=== PATIENT | female | born 1995 | race Caucasian/White ===

== ENCOUNTER → 2018-07-23 | Outpatient (CLI) | payer OTHER | LOC: LAB SHORT 10:55 → LAB 10:55 | DX: K27.9 Peptic ulcer, site unspecified, unspecified as acute or chronic, without hemorrhage or perforation (principal) | CPT/HCPCS: 87338 ==

== ENCOUNTER 2018-08-31 09:29 | Day surgery (SDC) | payer OTHER ==
[~2018-08-31] VITALS: Ht 165.1 cm; Wt 75.3 kg
[~2018-08-31 09:29] MED LIST: AMIT10 PO; ENSKYCE1 EACH PO; ESCI20 PO; ONDA4ODT MM; Omeprazole20 M1 PO; SUCR1 PO; TRAZ100 PO
[2018-08-31] MEDS ORDERED: Zantac150 MG PO (10:20)
== END 2018-08-31 22:46 | disposition home or self-care (01) ==
LOC: ORSCMMR 09:29 → ORD 10:30 → ORSCMMR 22:46
PROVIDERS: Internal Medicine Gastroenterology
PROC: 0DB48ZX Excision of Esophagogastric Junction, Via Natural or Artificial Opening Endoscopic, Diagnostic (ICD-10-PCS; principal; 2018-08-31 10:30)
PROC: 0DB68ZX Excision of Stomach, Via Natural or Artificial Opening Endoscopic, Diagnostic (ICD-10-PCS; principal; 2018-08-31 10:30)
PROC: 0DB88ZX Excision of Small Intestine, Via Natural or Artificial Opening Endoscopic, Diagnostic (ICD-10-PCS; principal; 2018-08-31 10:30)
PROC: 0DB58ZX Excision of Esophagus, Via Natural or Artificial Opening Endoscopic, Diagnostic (ICD-10-PCS; principal; 2018-08-31 10:30)
DX: K21.9 Gastro-esophageal reflux disease without esophagitis (principal); K44.9 Diaphragmatic hernia without obstruction or gangrene; K29.60 Other gastritis without bleeding; F32.9 Major depressive disorder, single episode, unspecified; Z79.3 Long term (current) use of hormonal contraceptives; Z79.899 Other long term (current) drug therapy
CPT/HCPCS: 88305; 88342; J7120